=== PATIENT | male | born 1990 | race Caucasian/White ===

== ENCOUNTER 2019-11-09 04:57 | Emergency (ER) | payer BC, SELFPAY ==
[2019-11-09] MEDS ORDERED: NA CHLORIDE 0.9% 1,000 ML ONE (05:32)
[2019-11-09 06:24] LABS: Absolute Lymphocytes (CBC) 1.2 K/uL (0.7-4.9); Basophils % 0.3 % (0-1.3); Lymphocytes % 12.9 % (15.3-44.8); MPV 8.8 fL (7.6-11.3); RBC Red Blood Cell Count 4.85 M/uL (4.33-5.43)
[2019-11-09 06:37] LABS: BUN Blood Urea Nitrogen 14 mg/dL (7-18); Bicarbonate 25 mmol/L (21-32); Glucose Level 115 mg/dL (74-106); Potassium 3.7 mmol/L (3.5-5.1); Sodium Level 141 mmol/L (136-145)
--- NOTE | 2019-11-09 09:25 | ER ---
Nurse's Notes [facility] Name: Julio Lovelace Age: 29 yrs Sex: Male : 1990 Arrival Date: 11/09/2019 Time: 05:00 Bed 30 Private MD: Diagnosis: Viral infection, unspecified;Acute upper respiratory infection, unspecified Presentation: 11/08 04:50 Chief complaint: Patient states: that he has a cough with green sputum, sore throat, fc bilateral ear pain, fatigue and SOB that started on 11/04/2019. Pt returned from [facility] on 11/06/2019. (Pt traveled from [place] on 10/26/2019 to [facility] then to [facility] returning on 11/05 from [facility] to [facility] to [place]) All on [facility]. Coronavirus screen: The patient HAS traveled to [place] in the past 14 days. The patient DOES HAVE a fever and/or cough Mask placed on patient and transported to negative pressure isolation room. The patient has NOT had contact with known and/or suspected case of Coronavirus. Proceed with normal triage procedures. [facility] notified of positive screening. Spoke with Destini at [phone] at [phone]. She will contact someone to call us back. Also pt went to [facility]. not [place]. Ebola Screen: Patient negative for fever greater than or equal to 101.5 degrees Fahrenheit, and additional compatible Ebola Virus Disease symptoms Patient denies exposure to infectious person. Patient denies travel to an Ebola-affected area in the 21 days before illness onset. Initial Sepsis Screen: Does the patient meet any 2 criteria? RR > 20 per min. HR > 90 bpm. Yes Does the patient have a suspected source of infection? Yes: Productive cough/pneumonia. Risk Assessment: Do you want to hurt yourself or someone else? Patient reports no desire to harm self or others. Onset of symptoms was November 04, 2019. Care prior to arrival: Medication(s) given: Mucinex last taken at 2029 last night. Transition of care: patient was not received from another setting of care. 04:50 Method Of Arrival: Ambulatory fc 04:50 Acuity: SARAH 2 fc 06:45 Coronavirus screen: Spoke with Betty Luther and gave her pts symptoms. She would fc like to speak with re: pts care and needs. 07:05 Coronavirus screen: [facility] notified of positive fc screening. Dr Luna spoke with Betty Luther at [facility] and she will speak with her lead section supervisor to see what needs to be done with pt. She will call back. 09:18 Coronavirus screen: Perry Kelly with [facility] called to report dm5 that the patient does not meet criteria for testing or hospitalization and that the health department recommends discharge and they will follow up with the patient in a few days. Triage Assessment: 04:50 Respiratory: the patient has mild shortness of breath. rr5 Historical: - Allergies: 05:36 No Known Allergies; fc - Home Meds: 05:36 None [Active]; fc - PMHx: 05:36 None; fc - PSHx: 05:36 None; fc - Immunization history:: Last tetanus immunization: up to date Flu vaccine is not up to date. - Social history:: Smoking status: Patient denies any tobacco usage or history of. Patient/guardian denies using alcohol, street drugs. - Family history:: not pertinent. - Hospitalizations: : No recent hospitalization is reported. Screenin:50 Abuse screen: Denies threats or abuse. Nutritional screening: No deficits noted. fc Tuberculosis screening: No symptoms or risk factors identified. Fall Risk None identified. Assessment: 04:50 General: Appears in no apparent distress. uncomfortable, Behavior is calm, cooperative, rr5 appropriate for age, Reports fatigue for. 04:50 Pain: Complains of pain in right ear and left ear Pain does not radiate. Pain currently rr5 is 7 out of 10 on a pain scale. Quality of pain is described as aching, Pain began gradually, Is intermittent. Neuro: Level of Consciousness is awake, alert, obeys commands, Oriented to person, place, time, situation, Appropriate for age. Cardiovascular: Capillary refill < 3 seconds Patient's skin is warm and dry. Cardiovascular: Rhythm is sinus tachycardia. Respiratory: Reports shortness of breath on exertion cough that is productive, Airway is patent Respiratory effort is even, unlabored, Respiratory pattern is regular, symmetrical. GI: Abdomen is flat. : No signs and/or symptoms were reported regarding the genitourinary system. EENT: No signs and/or symptoms were reported regarding the EENT system. Derm: Skin is intact, is healthy with good turgor, Skin temperature is warm. Musculoskeletal: Circulation, motion, and sensation intact. Capillary refill < 3 seconds. 05:50 Reassessment: Patient appears in no apparent distress at this time. No changes from rr5 previously documented assessment. awaiting for results. Charge nurse coordinated to lead section supervisor the situation. 06:30 Reassessment: Charge nurse [facility] and [facility] thru phone.rr5 07:05 Reassessment:. Vital Signs: 04:50 BP 128 / 80; Pulse 112; Resp 24; Temp 99.9(O); Pulse Ox 98% on R/A; Weight 66.68 kg fc (R); Height 5 ft. 6 in. (167.64 cm) (R); Pain 7/10; 06:42 BP 101 / 65; Pulse 97; Resp 20; Temp 98.9; Pulse Ox 98% on R/A; rr5 04:50 Body Mass Index 23.73 (66.68 kg, 167.64 cm) ED Course: 04:50 Arm band placed on Patient placed in an exam room, on a stretcher. fc 04:50 Patient has correct armband on for positive identification. Bed in low position. Call fc light in reach. Pulse ox on. NIBP on. 04:50 No provider procedures requiring assistance completed. fc 05:00 Patient arrived in ED. ag3 05:05 Jordon Luna MD is Attending Physician. rn 05:25 Dionisio Bonilla RN is Primary Nurse. rr5 05:25 Flu and/or RSV swab sent to lab. Strep swab sent to lab. rr5 05:32 Triage completed. fc 05:52 XRAY Chest (1 view) In Process Unspecified. EDMS 05:55 Inserted saline lock: 18 gauge in right antecubital area, using aseptic technique. rr5 ,using aseptic technique. inserted by hunter cartography/mapping technician Blood collected. 08:32 Attending Physician role handed off by Jordon Luna MD kdr 08:32 Donald Monge MD is Attending Physician. kdr 09:23 Floyd Kat MD is Referral Physician. kdr 10:41 Patient did not have IV access during this emergency room visit. ss Administered Medications: 05:54 Drug: NS 0.9% 1000 ml Route: IV; Rate: 1000 ml; Site: right antecubital; rr5 Outcome: 09:24 Discharge ordered by . kdr 10:41 Discharged to home ambulatory. ss 10:41 Condition: good 10:41 Discharge instructions given to patient, family, Instructed on discharge instructions, follow up and referral plans. Demonstrated understanding of instructions, follow-up care. 10:41 Patient left the ED. ss Signatures: Dispatcher [employer] EDMS Dotty Brice RN RN dm5 Donald Monge MD MD kdr Josie Syed RN RN Jordon Luna MD MD rn Smirch, Shelby, RN RN Vivien Shaw Raymond, RN RN rr5 Corrections: (The following items were deleted from the chart) 06:26 04:50 Coronavirus screen: The patient HAS traveled to [place] in the past 14 days. The patient DOES HAVE a fever and/or cough Mask placed on patient and transported to negative pressure isolation room. The patient has NOT had contact with known and/or suspected case of Coronavirus. Proceed with normal triage procedures. 07:45 04:50 Coronavirus screen: The patient HAS traveled to [place] in the past 14 days. The patient DOES HAVE a fever and/or cough Mask placed on patient and transported to negative pressure isolation room. The patient has NOT had contact with known and/or suspected case of Coronavirus. Proceed with normal triage procedures. [facility] notified of positive screening. Spoke with Destini at [phone] at [phone]. She will contact someone to call us back. Also pt went to [facility]. not [place].
--- NOTE | 2019-11-09 09:25 | EDPHYS ---
Physician Documentation [facility] Name: Julio Lovelace Age: 29 yrs Sex: Male : 1990 Arrival Date: 11/09/2019 Time: 05:00 Bed 30 Private MD: ED Physician Donald Monge HPI: 11/08 06:56 This 29 yrs old Male presents to ER via Ambulatory with complaints of rn Shortness Of Breath, Cough, Congestion. 06:56 The patient has shortness of breath at rest, with light activity. Onset: The rn symptoms/episode began/occurred 5 day(s) ago. Duration: The symptoms are continuous. The patient's shortness of breath is aggravated by exertion, light activity. Severity of symptoms: At their worst the symptoms were mild in the emergency department the symptoms are unchanged. The patient has not experienced similar symptoms in the past. Reports just came back from [facility], on vacation, reports felt ill there, then flew on 15 hour flight here, states still feels sick, normally pretty fit, and feels winded with activity, + productive cough of green sputum, reports feels similar to previous sinus infections in past. Reports is not symptomatic. . Historical: - Allergies: 05:36 No Known Allergies; fc - Home Meds: 05:36 None [Active]; fc - PMHx: 05:36 None; fc - PSHx: 05:36 None; fc - Immunization history:: Last tetanus immunization: up to date Flu vaccine is not up to date. - Social history:: Smoking status: Patient denies any tobacco usage or history of. Patient/guardian denies using alcohol, street drugs. - Family history:: not pertinent. - Hospitalizations: : No recent hospitalization is reported. ROS: 06:56 Constitutional: + fever Eyes: Negative for injury, pain, redness, and discharge, ENT: + rn sinus pressure Neck: Negative for injury, pain, and swelling, Cardiovascular: Negative for chest pain, palpitations, and edema, Respiratory: + productive cough and dyspnea Abdomen/GI: Negative for abdominal pain, nausea, vomiting, diarrhea, and constipation, MS/Extremity: Negative for injury and deformity, Skin: Negative for injury, rash, and discoloration, Neuro: Negative for headache, weakness, numbness, tingling, and seizure. Exam: 06:56 Constitutional: This is a well developed, well nourished patient who is awake, alert, rn and in no acute distress. Head/Face: Normocephalic, atraumatic. Eyes: Pupils equal round and reactive to light, extra-ocular motions intact. Lids and lashes normal. Conjunctiva and sclera are non-icteric and not injected. Cornea within normal limits. Periorbital areas with no swelling, redness, or edema. ENT: mild pharyngeal erythema, no exudate, no stridor Neck: Trachea midline, no thyromegaly or masses palpated, and no cervical lymphadenopathy. Supple, full range of motion without nuchal rigidity, or vertebral point tenderness. No Meningismus. Cardiovascular: Tachycardic, regular, intact distal pulses Respiratory: Lungs have equal breath sounds bilaterally, clear to auscultation. No increased work of breathing, no retractions or nasal flaring. Abdomen/GI: soft, non-tender Skin: Warm, dry with normal turgor. Normal color with no rashes, no lesions, and no evidence of cellulitis. MS/ Extremity: Pulses equal, no cyanosis. Neurovascular intact. Full, normal range of motion. Equal circumference. Neuro: Awake and alert, GCS 15, oriented to person, place, time, and situation. Cranial nerves II-XII grossly intact. Motor strength 5/5 in all extremities. Sensory grossly intact. Cerebellar exam normal. Normal gait. Vital Signs: 04:50 BP 128 / 80; Pulse 112; Resp 24; Temp 99.9(O); Pulse Ox 98% on R/A; Weight 66.68 kg fc (R); Height 5 ft. 6 in. (167.64 cm) (R); Pain 7/10; 06:42 BP 101 / 65; Pulse 97; Resp 20; Temp 98.9; Pulse Ox 98% on R/A; rr5 04:50 Body Mass Index 23.73 (66.68 kg, 167.64 cm) fc MDM: 05:05 Patient medically screened. rn 06:56 ED course: Contacted [facility], spoke with Giuliana, who is going rn to talk to her track laying supervisor and call us back regarding need to test or not. She does not believe at this time that he needs to be tested given [place] not on the current list of countries used to identify PUI on flowchart. I updated patient and he is aware of what is going on. . 07:14 Transition of care: After a detail discussion of the patient's case, care is rn transferred to Donald Monge MD. 08:32 ED course: Awaiting call from [facility]. The patient remains stable in the ED. kdr 10:22 Data reviewed: vital signs, nurses notes, lab test result(s), radiologic studies. kdr Counseling: I had a detailed discussion with the patient and/or guardian regarding: the historical points, exam findings, and any diagnostic results supporting the discharge/admit diagnosis, lab results, radiology results, the need for outpatient follow up. 11/08 05:20 Order name: CBC with Diff; Complete Time: 06:34 rn 11/08 05:20 Order name: Basic Metabolic Panel; Complete Time: 07:14 rn 11/08 05:20 Order name: Blood Culture Adult (2) rn 11/08 05:20 Order name: Procalcitonin; Complete Time: 07:14 rn 11/08 05:20 Order name: Lactate; Complete Time: 07:14 rn 11/08 05:20 Order name: Flu; Complete Time: 06:24 rn 11/08 05:20 Order name: IV Start; Complete Time: 05:55 rn 11/08 05:20 Order name: XRAY Chest (1 view) rn 11/08 05:20 Order name: Strep; Complete Time: 06:24 rn / 05:59 Order name: Throat Culture EDTN 11/08 08:04 Order name: Diet Regular; Complete Time: 08:04 bd Administered Medications: 05:54 Drug: NS 0.9% 1000 ml Route: IV; Rate: 1000 ml; Site: right antecubital; rr5 Disposition: 11/09/19 09:24 Discharged to Home. Impression: Viral infection, unspecified, Acute upper respiratory infection, unspecified. - Condition is Stable. - Discharge Instructions: Upper Respiratory Infection, Adult, Viral Respiratory Infection, [id number]. - Medication Reconciliation Form, Thank You Letter form. - Follow up: Floyd Kat MD; When: 2 - 3 days; Reason: If symptoms return, Further diagnostic work-up, Recheck today's complaints, Continuance of care, Re-evaluation by your physician. - Problem is new. - Symptoms are unchanged. - Notes: You should self quarantine for the next 10 - 14 days. Use good hygeine and return to the emergency Department or see Dr. Kat should your signs and symptoms worsen. Signatures: Dispatcher [employer] [facility] Donald Monge MD MD kdr Chretien, Felicia RN RN Jordon Luna MD MD rn Smirch, Shelby, RN RN ss Dionisio Bonilla RN RN rr5 Corrections: (The following items were deleted from the chart) 05:49 05:06 Chest Pa And Lat (2 Views)+[email or web address] ordered. [facility] 10:41 09:24 11/09/2019 09:24 Discharged to Home. Impression: Viral infection, unspecified; ss Acute upper respiratory infection, unspecified. Condition is Stable. Forms are Medication Reconciliation Form, Thank You Letter, Antibiotic Education, Prescription Opioid Use. Follow up: Floyd Kat; When: 2 - 3 days; Reason: If symptoms return, Further diagnostic work-up, Recheck today's complaints, Continuance of care, Re-evaluation by your physician. Problem is new. Symptoms are unchanged. kdr
[2019-11-09 10:51] VITALS: BP 101/65; TEMP 98.9; O2SAT 98
--- NOTE | 2019-11-09 11:29 | RAD REPORT ---
EXAM DESCRIPTION: CHEST, ONE VIEW XR CLINICAL HISTORY: COUGH COMPARISON: None. TECHNIQUE: AP Chest. FINDINGS: Normal cardiac size. Pulmonary vasculature appears normal. Normal cardiomediastinal contou rs. Lungs are clear. Pleural spaces are clear. Unremarkable soft tissues and bones. IMPRESSION: 1. Normal chest. Electronically signed by: Fernanda Alexander DO 11/09/2019 6:04 AM CATHODIC PROTECTION TECHNICIAN Due to temporary technical issues with the PACS/Fluency reporting system, reports are being signed by the in house radiologist as a courtesy to ensure prompt reporting. The interpreting radiologist is f ully responsible for the content of the report.
== END 2019-11-09 10:41 | disposition home or self-care (01) ==
LOC: ER 04:57
DX: J06.9 Acute upper respiratory infection, unspecified (principal); B34.9 Viral infection, unspecified
CPT/HCPCS: 36415; 71045; 80048; 83605; 84145; 85025; 87040; 87070; 87081; 87804; 99284; J7030